=== PATIENT | female | born 1935 | race Two or more races ===

== ENCOUNTER 2017-04-04 13:08 | Outpatient (CLI) | payer OTHER ==
[~2017-04-04 13:08] MED LIST: AVALIDE 300-12.1 TAB; GLUCOTROL10 MG; LIPITOR20 MG; NEURONTIN300 MG; NORVASC5 MG; PLAVIX75 MG; SYNTHROID50 MCG
== END 2017-04-04 14:45 | disposition home or self-care (01) ==
LOC: TOM 13:08
DX: R91.1 Solitary pulmonary nodule (principal)

== ENCOUNTER → 2017-04-20 | Emergency (ER) | payer OTHER | END | disposition home or self-care (01) | LOC: ER 12:27 → CPU-OBS 13:02 | DX: R07.89 Other chest pain (principal); E11.649 Type 2 diabetes mellitus with hypoglycemia without coma; I10 Essential (primary) hypertension ==

== ENCOUNTER 2017-04-21 11:20 | Outpatient (CLI) | payer OTHER | END 2017-04-21 12:00 | disposition home or self-care (01) | LOC: SONOGRAMA 11:20 | DX: E04.1 Nontoxic single thyroid nodule (principal) ==

== ENCOUNTER 2019-05-04 14:23 | Emergency (ER) | payer OTHER ==
[~2019-05-04] VITALS: Ht 157.5 cm; Wt 70.3 kg
[2019-05-04] MEDS ORDERED: FOSAMAX70 MG PO (14:53)
[2019-05-04] MEDS ORDERED: CLONAZEPAM0.5 MG PO (14:53)
[2019-05-04] MEDS ORDERED: CLONAZEPAM1 MG PO (14:53)
[2019-05-04] MEDS ORDERED: OSTERA TABLET1 EACH PO (14:54)
[2019-05-04] MEDS ORDERED: ZITHROMAX500 MG PO (17:54)
[2019-05-04] MEDS ORDERED: TUSNEL DIABETI118 ML PO (17:54)
[2019-05-04] MEDS ORDERED: XOPENEX0.63 MG/3 IH (17:54)
== END 2019-05-04 18:08 | disposition home or self-care (01) ==
LOC: ER 14:23
DX: B34.9 Viral infection, unspecified (principal)

== ENCOUNTER 2022-03-19 13:15 | Outpatient (CLI) | payer OTHER ==
[~2022-03-19 13:15] MED LIST changes: +CLONAZEPAM0.5 MG PO; +CLONAZEPAM1 MG PO; +FOSAMAX70 MG PO; +OSTERA TABLET1 EACH PO; +TUSNEL DIABETI118 ML PO; +XOPENEX0.63 MG/3 IH; +ZITHROMAX500 MG PO
== END 2022-03-19 13:17 | disposition home or self-care (01) ==
LOC: TOM 13:15
DX: E04.9 Nontoxic goiter, unspecified (principal); J18.0 Bronchopneumonia, unspecified organism

== ENCOUNTER 2022-08-12 12:11 | Inpatient (IN) | payer OTHER ==
[~2022-08-12] VITALS: Ht 160 cm; Wt 59.0 kg
[2022-08-12] MEDS ORDERED: APRESOLINE 10MG10 MG PO (12:40)
--- NOTE | 2022-08-12 12:41 | NUR ---
PT LLEGA EN AMBULANCIA POR TRAUMA EN MEJIA Y CONVULCION DESDE HACE [address]. SE LE WILLIAMS S/V Y SE ACOMODA EN CAMA.
--- NOTE | 2022-08-12 14:44 | NUR ---
SE RECIBE DE AMBULANCIA, LA CUAL COMENZO A VOMITAR COLOR COFFEE BROWN. PTE ALERTA Y ORIENTADA X3, REFIER TENER MUCHAS NAUSEAS YSENTIR SABOR AMARGO EN CADA VOMITO, TAMBIEN COMENTA SENTIRSE MAREADA. SE CONECTA PTE A MONITOR CARDIACO Y OXYMETRIA CONTINUA. RT.ROHENA REALIZA MUESTRA ORDENADA. CANALIZACIONES #20 LT, RA PATENTES CON H/L. BAJANDO 0.9%NSS A 100MLS/HR DAVID ORDEN MEDICA. SE INSERTA PARRA CON MEDIDAS ASEPTICAS Y ESTERILES. SE COLECTAN MUESTRAS DE THERON DAVID ORDEN MEDICA Y BAJO MEDIDAS ASEPTICAS. SE ADMINITRAN MEDICAMENTOS DAVID ORDEN MEDICA Y SE ORIENTA SOBRE EL MISMO. PTE PENDIENTE A MRI. CONSULTAS PENDIENTES Y NOTIFICADAS. FEMINA PRESENTA ULCERA SACRAL ABIERTA CON SECRESIONES Y BORDES COLOR FERRARI. ULCERA CON SECRECIONES/PUS EN CADERA LADO DERECHO. LACERACIONES EN AMBOS BRAZOS. HEMATOMAS EN MEJIA, BRAZO, CADERA Y PIERNA LADO DERECHO. PTE Y FAMILIAR REFIRE RELACIONADAS A MIRIAN CAIDA EL JUEVES PASADO. ADEMAS PUNTOS DE SUTURA EN LADO DERCHO DE LA FRENTE, TAMBIEN DEL ACCIDENTE MENCIONADO. SE MANTIENE PTE BAJO OBSERVACION POR CAMBIOS SIGNIFICATIVOS.
--- NOTE | 2022-08-12 16:22 | NUR ---
SE RECIBE PTE DEL TURNO ANTERIOR FEMINA DE 86 ANOS ALERTA Y ORIENTADA X3 CONECTADA A MONITOR CARDIACO Y OXIMETRIA DE PULSO. SE OBSERVA HEMATOMA EN MEJIA CON PUNTOS DE SUTURA EN LADO DERECHO DE LA FRENDE TRAS CAIDA EL JUEVES 15 DAVID REFIERE FAMILIAR. PTE CON VENUPUNCION ANGIO #20 EN MANO LT PATENTE Y JAYCEE DE EDEMA Y ENROJECIMIENTO BAJANDO 0.9% NSS @ 100 MLS/HR. PTE CON VENOPUNCION EN BRAZO DERECHO ANGIO #20 JAYCEE DE EDEMA Y ENROJECIMIENTO. PTE CON ULCERA SACRAL ABIERTA CON SECRESIONES. SE OBSERVA PTE CON HEMATOMAS BRAZO, CADERA Y PIERNA LADO DERECHO. PTE CON PARRA A GRAVEDAD. PTE EN ESPERA DE CONSULTA CON INTERNISTA. SE MANTIENE EN OBSERVACION.
[2022-08-13] MEDS ORDERED: ATORVASTATIN CA20 MG (08:54)
[2022-08-13] MEDS ORDERED: JANUMET 50-5001 EACH (08:57)
[2022-08-13] MEDS ORDERED: CLONAZEPAM0.5 MG (08:57)
[2022-08-13] MEDS ORDERED: SYSTANE 0.3-0.1 EACH (08:58)
[2022-08-13] MEDS ORDERED: MONTELUKAST SOD10 MG (08:58)
[2022-08-13] MEDS ORDERED: SPIRONOLACTONE25 MG (08:58)
[2022-08-13] MEDS ORDERED: CARVEDILOL6.25 M1 (08:58)
[2022-08-13] MEDS ORDERED: SYSTANE 0.3-0.415 ML (08:58)
[2022-08-13] MEDS ORDERED: LEVALBUTEROL TA15 GM (08:58)
[2022-08-13] MEDS ORDERED: SYMBICORT 16010.2 GM (08:58)
== END 2022-08-20 19:29 | disposition home or self-care (01) | DRG 83 ==
LOC: ER 12:11 → SEC-K 19:10 → ICU 19:10 → MEDJ 19:10 → ICU-2 22:50 → ICU 08-13 02:44 → MEDI 08-16 19:01 → MEDJ 08-16 21:38
PROVIDERS: ADMIT Internal Medicine; ATTEND Internal Medicine
PROC: BW28ZZZ Computerized Tomography (CT Scan) of Head (ICD-10-PCS; principal; 2022-08-12)
PROC: B030ZZZ Magnetic Resonance Imaging (MRI) of Brain (ICD-10-PCS; 2022-08-12)
PROC: B246ZZZ Ultrasonography of Right and Left Heart (ICD-10-PCS; 2022-08-12)
PROC: BW28ZZZ Computerized Tomography (CT Scan) of Head (ICD-10-PCS; 2022-08-14)
PROC: 4A12X4Z Monitoring of Cardiac Electrical Activity, External Approach (ICD-10-PCS; 2022-08-17)
DX: S06.5X9A Traumatic subdural hemorrhage with loss of consciousness of unspecified duration, initial encounter (principal); E87.1 Hypo-osmolality and hyponatremia; G40.89 Other seizures; E86.0 Dehydration; S00.83XA Contusion of other part of head, initial encounter; W13.3XXA Fall through floor, initial encounter; I10 Essential (primary) hypertension; D32.9 Benign neoplasm of meninges, unspecified; I48.91 Unspecified atrial fibrillation; E03.8 Other specified hypothyroidism; E11.9 Type 2 diabetes mellitus without complications; L89.152 Pressure ulcer of sacral region, stage 2; L89.312 Pressure ulcer of right buttock, stage 2; Z79.4 Long term (current) use of insulin
CPT/HCPCS: 70551

== ENCOUNTER 2022-09-07 09:38 | Outpatient (CLI) | payer OTHER ==
[~2022-09-07 09:38] MED LIST changes: +APRESOLINE 10MG10 MG PO; +ATORVASTATIN CA20 MG; +CARVEDILOL6.25 M1; +CLONAZEPAM0.5 MG; +JANUMET 50-5001 EACH; +LEVALBUTEROL TA15 GM; +MONTELUKAST SOD10 MG; +SPIRONOLACTONE25 MG; +SYMBICORT 16010.2 GM; +SYSTANE 0.3-0.1 EACH; +SYSTANE 0.3-0.415 ML
== END 2022-09-07 09:57 | disposition home or self-care (01) ==
LOC: TOM 09:38
PROVIDERS: ATTEND Internal Medicine
DX: I62.9 Nontraumatic intracranial hemorrhage, unspecified (principal); R10.9 Unspecified abdominal pain; S09.90XA Unspecified injury of head, initial encounter; S80.912A Unspecified superficial injury of left knee, initial encounter

== ENCOUNTER 2022-12-04 19:01 | Emergency (ER) | payer OTHER ==
[~2022-12-04] VITALS: Ht 152.4 cm; Wt 61.2 kg
[2022-12-04 21:30] LABS: ABG PH 7.464 (7.35-7.45); ABG PO2 75.4 mmHg (80-100); ABG pCO2 38.5 mmHg (35-45); BASE EXCESS 3.2 mmol/l; SaO2 95.9 %; Tco2 28.2 mmol/l
[2022-12-04 21:44] LABS: o2 21 %
[2022-12-04 21:45] LABS: allen test SATISFACTORY; puncture site RADIAL LEFT
[2022-12-04 21:53] LABS: HEMATOCRIT 40.8 % (36.0-45.00); HEMOGLOBIN 13.6 g/dL (12.0-15.00); MEAN CELL VOLUME 83.7 fL (80.00-100.00); MEAN CORPUSCULAR HEMOGLOBIN 27.8 pg (27.00-32.0); MEAN CORPUSCULAR HGB CONC 33.2 g/dl (32.0-36.0); PLATELET COUNT 181 K/uL (150-450); RED BLOOD COUNT 4.88 M/uL (4.00-6.00); RED CELL DISTRIBUTION WIDTH 13.6 % (11.5-14.5)
[2022-12-04 22:16] LABS: ALBUMIN 3.4 gm/dL (3.4-5.0); BILIRUBIN TOTAL 0.28 mg/dL (0.3-1.2); CALCIUM 8.7 mg/dL (8.5-10.1); CREATININE SERUM 0.82 mg/dL (0.55-1.02); GFR 65.94; POTASSIUM 4.16 mEq/L (3.5-5.1); TOTAL PROTEIN 7.4 gm/dL (6.4-8.2)
== END 2022-12-04 23:52 | disposition home or self-care (01) ==
LOC: ER
PROVIDERS: General Practice
DX: R05.3 Chronic cough (principal); I49.8 Other specified cardiac arrhythmias; Z86.73 Personal history of transient ischemic attack (TIA), and cerebral infarction without residual deficits; E03.9 Hypothyroidism, unspecified; E78.00 Pure hypercholesterolemia, unspecified; Z88.6 Allergy status to analgesic agent; Z88.8 Allergy status to other drugs, medicaments and biological substances; J45.909 Unspecified asthma, uncomplicated; Z20.822 Contact with and (suspected) exposure to COVID-19
CPT/HCPCS: 36415; 82803; 94640; 96365; 99285; J0696; J2920

== ENCOUNTER 2023-10-11 13:18 | Outpatient (CLI) | payer OTHER | END 2023-10-11 13:33 | disposition home or self-care (01) | LOC: SONOGRAMA 13:18 | PROVIDERS: ATTEND Internal Medicine | DX: E04.2 Nontoxic multinodular goiter (principal) ==

== ENCOUNTER → 2024-02-26 | Emergency (ER) | payer OTHER ==
[~2024-02-26] VITALS: Ht 152.4 cm; Wt 68.0 kg
[~2024-02-26] MED LIST changes: +IPRATROPIUM BROMIDE 0.5 MG/2.5 ML AMPUL.NEB IH ONE; +LEVALBUTEROL HCL 1.25 MG/3 ML SOLUTION IH ONE; +LIPITOR40 M1; +METHYLPREDNISOLONE SOD SUCC 125 MG VIAL IV ONE; +METHYLPREDNISOLONE SOD SUCC 40 MG VIAL ONE; +PROTONIX20 MG; +TOPROL XL25 M1
[2024-02-26 12:03] LABS: HEMOGLOBIN 13.7 g/dL (12.0-15.00); MEAN CELL VOLUME 83.1 fL (80.00-100.00); MEAN CORPUSCULAR HEMOGLOBIN 28.5 pg (27.00-32.0); MEAN CORPUSCULAR HGB CONC 34.3 g/dl (32.0-36.0); PLATELET COUNT 224 K/uL (150-450); RED BLOOD COUNT 4.82 M/uL (4.00-6.00); RED CELL DISTRIBUTION WIDTH 13.7 % (11.5-14.5)
== END | disposition home or self-care (01) ==
LOC: ER 10:24
PROVIDERS: General Practice
DX: J45.909 Unspecified asthma, uncomplicated (principal); J00 Acute nasopharyngitis [common cold]; Z20.822 Contact with and (suspected) exposure to COVID-19; I10 Essential (primary) hypertension; E11.9 Type 2 diabetes mellitus without complications; Z88.1 Allergy status to other antibiotic agents; Z88.6 Allergy status to analgesic agent
CPT/HCPCS: 36415; 71046; 94640; 96365; 99283; J3490

== ENCOUNTER 2024-08-22 13:37 | Outpatient (CLI) | payer OTHER ==
[~2024-08-22 13:37] MED LIST changes: -IPRATROPIUM BROMIDE 0.5 MG/2.5 ML AMPUL.NEB IH ONE; -LEVALBUTEROL HCL 1.25 MG/3 ML SOLUTION IH ONE; -METHYLPREDNISOLONE SOD SUCC 125 MG VIAL IV ONE; -METHYLPREDNISOLONE SOD SUCC 40 MG VIAL ONE
== END 2024-08-22 13:40 | disposition home or self-care (01) ==
LOC: RAD 13:37
PROVIDERS: ATTEND Internal Medicine
DX: M25.562 Pain in left knee (principal); R06.02 Shortness of breath